=== PATIENT | female | born 1990 | race Caucasian/White ===

== ENCOUNTER 2017-04-13 10:12 | Inpatient (IN) | payer OTHER ==
[~2017-04-13] VITALS: Ht 154.9 cm; Wt 83.4 kg
[2017-04-13 11:07] VITALS: BP 117/69; PULSE 76
[2017-04-13] MEDS ORDERED: PNV11TAB PO (11:08)
[2017-04-13] MEDS ORDERED: AMPICILLIN 2 GM/NS (PMX) 100 ML ONE (11:58)
[2017-04-13] MEDS ORDERED: LIDOCAINE 1% (MPF) 30 ML INJ INJ PRN (12:00)
[2017-04-13] MEDS ORDERED: AMPICILLIN 2 GM/NS (PMX) 100 ML IV ONE (12:00)
[2017-04-13] MEDS ORDERED: IBUPROFEN 600 MG TAB PO PRN (12:00)
[2017-04-13] MEDS ORDERED: BUTORPHANOL 2 MG INJ IV PRN (12:00)
[2017-04-13] MEDS ORDERED: CARBOPROST 250 MCG INJ IM PRN (12:00)
[2017-04-13] MEDS ORDERED: METHYLERGONOVINE 0.2 MG INJ IM PRN (12:00)
[2017-04-13] MEDS ORDERED: MISOPROSTOL 200 MCG TAB PR PRN (12:00)
[2017-04-13] MEDS ORDERED: OXYTOCIN 30 UNITS/LR 500 ML IV PRN (12:00)
[2017-04-13] MEDS ORDERED: OXYTOCIN 30 UNITS/LR 500 ML IV SCH ×3 (12:00)
[2017-04-13 12:14] VITALS: Ht 154.9 cm; Wt 83.4 kg
[2017-04-13] MEDS: LACTATED RINGER'S 1,000 ML IV SCH ×4 (12:19→20:13)
[2017-04-13 13:07] LABS: BASOPHILS % 0.3 % (0.0-2.0); EOSINOPHILS # 0.1 10^3/ul (0.0-0.5); EOSINOPHILS % 1.3 % (0.0-7.0); HEMATOCRIT 35.2 % (37.0-47.0); HEMOGLOBIN 11.5 g/dl (12.0-16.0); LYMPHOCYTES # 1.8 10^3/ul (0.8-2.9); LYMPHOCYTES % 19.4 % (15.0-51.0); MEAN CORPUSCULAR HEMOGLOBIN 27.1 pg (29.0-33.0); MEAN CORPUSCULAR HGB CONC 32.7 g/dl (32.0-37.0); MEAN CORPUSCULAR VOLUME 82.8 fl (82.0-101.0); MEAN PLATELET VOLUME 9.8 fl (7.4-10.4); MONOCYTE # 0.6 10^3/ul (0.3-0.9); MONOCYTES % 6.3 % (0.0-11.0); NEUTROPHIL # 6.8 10^3/ul (1.6-7.5); NEUTROPHILS % 72.1 % (39.0-77.0); PLATELET COUNT 331 10^3/UL (140-415); RED BLOOD COUNT 4.25 10^6/ul (4.20-5.40); RED CELL DISTRIBUTION WIDTH 13.6 % (11.5-14.5); WHITE BLOOD COUNT 9.4 10^3/ul (4.8-10.8)
[2017-04-13 13:30] LABS: INR 0.84; PROTIME 11.6 Sec (11.9-14.9); PT RATIO 0.9
[2017-04-13 13:50] LABS: PARTIAL THROMBOPLASTIN TIME 26.2 Sec (25.0-35.0)
[2017-04-13] MEDS: AMPICILLIN 1 GM/NS (PMX) 50 ML IV SCH ×2 (16:08→20:13)
[2017-04-13] MEDS ORDERED: FENTAnyl 2MCG/ML-ROPIV 0.2% 100 ML ONE (17:50)
[2017-04-13] MEDS ORDERED: ONDANSETRON 4 MG INJ IV PRN (18:00)
[2017-04-13] MEDS ORDERED: DIPHENHYDRAMINE 50 MG INJ IV PRN (18:00)
[2017-04-13] MEDS ORDERED: NALOXONE (0.4 MG/ML) INJ IV PRN (18:00)
[2017-04-13] MEDS ORDERED: FENTAnyl 2MCG/ML-ROPIV 0.2% 100 ML BAG EPI SCH (18:00)
[2017-04-13] MEDS ORDERED: LACTATED RINGER'S 1,000 ML IV PRN (18:56)
[2017-04-14] MEDS: AMPICILLIN 1 GM/NS (PMX) 50 ML IV SCH
[2017-04-14] MEDS: LACTATED RINGER'S 1,000 ML IV* SCH ×3 (00:43→16:43)
[2017-04-14] MEDS: OXYTOCIN 30 UNITS/LR 500 ML IV SCH ×2 (00:43→03:44)
--- NOTE | 2017-04-14 00:48 | LDN ---
Date/Time of Note Date/Time of Note DATE: 04/14/17 TIME: 00:46 Delivery Summary of a viable baby girl weighing 2590 grams or 5# 11 oz, 19" long, and with Apgars of 8/9. Weeks of Gestation 36w 2d Placenta Delivered: Spontaneously Meconium: none Episiotomy: No Perineal laceration: 1 Laceration repair: First degree perineal and right labial lacerations repaired with 2-0 chromic. Anesthesia type: Epidural Estimated blood loss: 200 Sponge & Needle done & correct: Yes All needle counts correct: Yes Any foreign bodies felt in the: No (vagina) Problems: Infant Delivery Information Sex Infant Sex: female Apgars 1 Minute: 8 5 Minute: 9 Suctioning Nose & mouth suctioned at vitor: Yes Delee suction performed: No Umbilical Cord Umbilical cord with: 3 Vessels Cord presentations: no nuchal cord Cord Blood was obtained: Yes Mother & Baby Disposition Disposition Mom & Baby to Maternity; Good: Yes Baby to NICU: No ANTIONETTE RAMIREZ MD Apr 14, 2017 00:48
--- NOTE | 2017-04-14 00:54 | HP ---
Date/Time of Note Date/Time of Note DATE: 04/14/17 TIME: 00:49 OB - History Hx of Present Free Text/Dictation 26 y.o. G1 with an IUP at 36 weeks 1 day on admit came in with spontaneous rupture of membranes at 2300 on 04/12. She came in with minimal contractions about 12 hours later and on exam was 70%/2-3 cm Estimated Due Date: May 10, 2017 : 1 Para: 0 Care: Good Care Ultrasounds: Normal mid trimester US Obstetrical Complications: None Medical Complications: None Other Concerns: PMHx: h/o very large nasal polyps. PSHx; removal of same x 2. NKDA. Past Family/Social History * Past Medical, Surgical, Family and Obstetric Histories reviewed from chart. Blood Type: O+ Rubella: immune RPR/VDRL: Negative GBS Status: Positive HBsAG: Negative OB Admission Exam Vital Signs Vital Signs Vital Signs Date Time Temp Pulse Resp B/P Pulse Ox O2 Delivery O2 Flow Rate FiO2 04/13/17 11:07 98.5 76 117/69 Physical Exam HEENT: WNL Heart: Rhythm Normal Lungs: Clear Abdomen: WNL Extremities: Normal Reflexes: Normal Cervical Dilatation: 2cm Effacement: 75% Station: -2 Membranes: Ruptured Amniotic Fluid: Clear Heart Rate: 130's Accelerations: Accelerations Present Decelerations: No Decelerations Varibility: Moderate Contractions on Admission: 6-10 Minutes Apart Intensity: Mild Last 72 hours Lab Results CBC & BMP 04/13/17 12:53 OB Assessment/Plan Reason for admission: group B positive strep, rupture of membranes Plan: Other (Augmentation) Induction Method: per Pitocin Protocol ANTIONETTE RAMIREZ MD Apr 14, 2017 00:54
[2017-04-14] MEDS ORDERED: CARBOPROST 250 MCG INJ IM PRN (01:00)
[2017-04-14] MEDS ORDERED: MISOPROSTOL 200 MCG TAB PR PRN (01:00)
[2017-04-14] MEDS ORDERED: LANOLIN 7 GM TUBE TOP PRN (01:00)
[2017-04-14] MEDS ORDERED: METHYLERGONOVINE 0.2 MG INJ IM PRN (01:00)
[2017-04-14] MEDS ORDERED: OXYTOCIN 30 UNITS/LR 500 ML IV PRN (01:00)
[2017-04-14] MEDS ORDERED: HYDROCODONE/APAP (5/325) TAB PO PRN (01:00)
[2017-04-14 02:50] VITALS: BP 118/64; PULSE 95; RESP 20
[2017-04-14] MEDS: IBUPROFEN 600 MG TAB PO SCH ×3 (05:23→18:00)
[2017-04-14 08:00] VITALS: BP 111/56; PULSE 76; RESP 16
[2017-04-14 12:16] VITALS: BP 90/52; PULSE 83; RESP 18
[2017-04-14] MEDS ORDERED: WITCH HAZEL/GLYCERIN PAD PR PRN (12:30)
[2017-04-14] MEDS ORDERED: BENZOCAINE 20% 56 ML SPRAY TOP PRN (12:30)
[2017-04-14 16:00] VITALS: BP 104/55; RESP 18
[2017-04-14] MEDS: IBUPROFEN 800 MG TAB PO SCH (17:59)
[2017-04-14 20:00] VITALS: BP 104/66; PULSE 85; RESP 18
[2017-04-15] MEDS: LACTATED RINGER'S 1,000 ML IV* SCH (00:43)
[2017-04-15] MEDS: IBUPROFEN 800 MG TAB PO SCH ×4 (01:15→17:47)
[2017-04-15 04:00] VITALS: BP 107/77; PULSE 77; RESP 19
[2017-04-15] MEDS: IBUPROFEN 600 MG TAB PO SCH ×2 (06:00)
[2017-04-15 07:20] VITALS: BP 110/60; PULSE 80; RESP 18
[2017-04-15] MEDS ORDERED: INFLUENZA VIRUS VACCINE 0.5 ML (DISPENSING) IM* ONE (09:00)
[2017-04-15 10:38] LABS: BASOPHILS % 0.3 % (0.0-2.0); EOSINOPHILS # 0.3 10^3/ul (0.0-0.5); EOSINOPHILS % 2.8 % (0.0-7.0); HEMATOCRIT 30.5 % (37.0-47.0); HEMOGLOBIN 10.1 g/dl (12.0-16.0); LYMPHOCYTES # 2.3 10^3/ul (0.8-2.9); LYMPHOCYTES % 20.1 % (15.0-51.0); MEAN CORPUSCULAR HEMOGLOBIN 27.7 pg (29.0-33.0); MEAN CORPUSCULAR HGB CONC 33.1 g/dl (32.0-37.0); MEAN CORPUSCULAR VOLUME 83.6 fl (82.0-101.0); MEAN PLATELET VOLUME 9.8 fl (7.4-10.4); MONOCYTE # 0.6 10^3/ul (0.3-0.9); NEUTROPHIL # 8.2 10^3/ul (1.6-7.5); NEUTROPHILS % 71.1 % (39.0-77.0); PLATELET COUNT 279 10^3/UL (140-415); RED BLOOD COUNT 3.65 10^6/ul (4.20-5.40); RED CELL DISTRIBUTION WIDTH 14.3 % (11.5-14.5); WHITE BLOOD COUNT 11.6 10^3/ul (4.8-10.8)
[2017-04-15 17:30] VITALS: BP 107/58; RESP 18
[2017-04-15 20:00] VITALS: BP 116/76; PULSE 87; RESP 18
[2017-04-16] MEDS: IBUPROFEN 800 MG TAB PO SCH ×3 (01:04→12:31)
[2017-04-16 04:00] VITALS: BP 125/80; PULSE 77; RESP 19
[2017-04-16 08:00] VITALS: BP 116/68; PULSE 82; RESP 18
[2017-04-16] MEDS ORDERED: DIPHTH/TET/ACEL PERTUSS (ADULT) 0.5 ML VIAL IM* ONE (09:00)
--- NOTE | 2017-04-16 13:52 | PD.PPDC ---
PROJECT DEVELOPMENT ENGINEER Discharge Instruction Condition Patient Condition: Good Diet Diet: Resume Regular Diet Activity/Restrictions Activity: Normal Activity May Shower Restrictions: No Sexual Activity Nothing in the Vagina No [place] No Tampons, douche Follow-up Follow-up with Physician: 6, Week/Weeks Return to clinic for [employer] Instructions: Fever greater than 101 Chills Worsening abdominal pain Excessive Vaginal Bleeding OB Instructions: Breast Tenderness Depression ANTIONETTE RAMIREZ MD Apr 16, 2017 13:52
--- NOTE | 2017-04-16 13:56 | DS ---
Date/Time of Note Date/Time of Note DATE: 04/16/17 TIME: 13:53 Obstetrical Discharge Record Final Diagnosis Final Diagnosis: delivered Vaginal Delivery Obstetrical Delivery: Laceration, Repaired Complications Other ( premature rupture of membranes) Augmentation: Yes Induction: No Rupture of Membranes: Yes Gestational Age at Rupture 36w 2d Condition on Discharge Physical Assessment Last Vitals: T=98.0 BP 116/68 Voiding: Yes Bowel Movement: Yes Breast: Filling Fundus: Firm Calf Tenderness: No Patient Condition: Good ANTIONETTE RAMIREZ MD Apr 16, 2017 13:56
== END 2017-04-16 15:40 | disposition home or self-care (01) | DRG 775 ==
LOC: OBT 10:12 → SDS 10:14 → L-D 10:35 → OBT 11:25 → L-D 11:35 → PP1 04-14 02:53
PROVIDERS: ADMIT Obstetrics & Gynecology; ATTEND Obstetrics & Gynecology
PROC: 4A1HXCZ Monitoring of Products of Conception, Cardiac Rate, External Approach (ICD-10-PCS; 2017-04-13)
PROC: 10E0XZZ Delivery of Products of Conception, External Approach (ICD-10-PCS; principal; 2017-04-14)
PROC: 0HQ9XZZ Repair Perineum Skin, External Approach (ICD-10-PCS; 2017-04-14)
DX: O42.013 Preterm premature rupture of membranes, onset of labor within 24 hours of rupture, third trimester (principal); O99.824 Streptococcus B carrier state complicating childbirth; O70.0 First degree perineal laceration during delivery; Z37.0 Single live birth; Z3A.36 36 weeks gestation of pregnancy
CPT/HCPCS: 62319; 84112; 85025; 85610; 85730; 86592; 86900; 86901; 87340; 90686; 90715; 99464; G0463; J0290; J2590; J3010; J7120